=== PATIENT | female | born 1965 | race African-American/Black ===

== ENCOUNTER 2018-06-01 09:33 | Emergency (ER) | payer OTHER ==
[~2018-06-01] VITALS: Ht 175.3 cm; Wt 73.0 kg
[~2018-06-01 09:33] MED LIST: ASPIRIN325 PO; DICLOFENAC SODI75 MG PO; FLEXERIL PO; HYDROCODONE-AP1 EAC6 PO; IBUPROFEN 800800 MG PO; LIORESAL 10 MG10 MG PO; MEDROLDOSEPACK PO; MOBIC7.5 MG PO; NAPROSYN500 MG PO; NOHOMEMEDICATIONS; NORVASC10 MG PO; NORVASC5 MG PO; TRAMADOL 50 MG50 MG PO; VICODIN 5-5001 EACH PO; VITAMIN D3400 UNIT PO
[2018-06-01] MEDS ORDERED: ACYCLOVIR 400400 MG PO (09:40)
[2018-06-01 10:44] LABS: ABSOLUTE NEUTROPHILS 4.1 thou/uL (1.4-8.2); BASOPHILS 0.6 % (0.0-2.0); EOSINOPHILS 3.5 % (0.0-3.0); HEMATOCRIT 38.3 % (37.0-47.0); HEMOGLOBIN 13.1 gm/dL (12.0-15.0); LYMPHOCYTES 29.9 % (24.0-44.0); MCH 29.9 pg (26.0-34.0); MCHC 34.2 g/dL (28.0-37.0); MCV 87.3 fL (80.0-100.0); MONOCYTES 7.3 % (1.0-8.0); PLATELET COUNT 243 thou/uL (150-400); POLYS 58.7 % (36.0-66.0); RBC 4.38 mil/uL (4.20-5.00); RDW 14.1 % (10.5-14.5)
[2018-06-01 10:46] LABS: URINE BILIRUBIN NEGATIVE (Negative); URINE BLOOD NEGATIVE (Negative); URINE CLARITY CLEAR; URINE COLOR YELLOW; URINE GLUCOSE-RANDOM* NEGATIVE (Negative); URINE KETONES NEGATIVE (Negative); URINE LEUKOCYTES-REFLEX NEGATIVE (Negative); URINE NITRITE-REFLEX NEGATIVE (Negative); URINE PROTEIN (DIPSTICK) NEGATIVE (Negative); URINE SPECIFIC GRAVITY <= 1.005 (1.005-1.035); URINE UROBILINOGEN 0.2 E.U./dl (0.2-1.0)
[2018-06-01 10:57] LABS: CALCIUM 9.6 mg/dL (8.5-10.1); CREATININE 0.9 mg/dL (0.6-1.0); POTASSIUM 3.6 mmol/L (3.5-5.1)
[2018-06-01 11:03] LABS: ALBUMIN 3.8 g/dL (3.4-5.0); TOTAL BILIRUBIN 0.2 mg/dL (<0.1-1.0); TOTAL PROTEIN 7.5 g/dL (6.4-8.2)
[2018-06-01] MEDS ORDERED: ANUSOL-HC25 MG RECTAL (11:57)
[2018-06-01] MEDS ORDERED: PHENERGAN 25 MG25 M1 PO (11:57)
[2018-06-01] MEDS ORDERED: PEPCID20 MG PO (11:57)
[2018-06-01 12:41] VITALS: BP 140/81
== END 2018-06-01 12:42 | disposition home or self-care (01) ==
LOC: ER 09:33
PROVIDERS: Physician Assistant
DX: K64.4 Residual hemorrhoidal skin tags (principal); R10.10 Upper abdominal pain, unspecified; R11.2 Nausea with vomiting, unspecified; I10 Essential (primary) hypertension; Z88.0 Allergy status to penicillin; Z88.1 Allergy status to other antibiotic agents

== ENCOUNTER 2018-09-19 16:19 | Emergency (ER) | payer OTHER ==
[~2018-09-19] VITALS: Ht 175.3 cm; Wt 68.0 kg
[~2018-09-19 16:19] MED LIST changes: +ACYCLOVIR 400400 MG PO; +ANUSOL-HC25 MG RECTAL; +PEPCID20 MG PO; +PHENERGAN 25 MG25 M1 PO
[2018-09-19 16:22] VITALS: BP 115/82
[2018-09-19] MEDS ORDERED: NAPROSYN500 MG PO (16:46)
[2018-09-19] MEDS ORDERED: NORFLEX100 MG PO (16:46)
[2018-09-19] MEDS ORDERED: TRAMADOL 50 MG50 MG PO (16:46)
[2018-09-19] MEDS ORDERED: ALDACTONE100 MG PO (17:09)
[2018-09-19] MEDS ORDERED: SPIRONOLACTONE100 M1 PO (17:10)
== END 2018-09-19 17:12 | disposition home or self-care (01) ==
LOC: ER 16:19
DX: S39.012A Strain of muscle, fascia and tendon of lower back, initial encounter (principal); M43.6 Torticollis; I10 Essential (primary) hypertension; Z88.0 Allergy status to penicillin; Z98.890 Other specified postprocedural states; V89.2XXA Person injured in unspecified motor-vehicle accident, traffic, initial encounter; Y93.89 Activity, other specified; Y92.481 Parking lot as the place of occurrence of the external cause; Y99.8 Other external cause status

== ENCOUNTER 2019-04-10 14:20 | Emergency (ER) | payer OTHER ==
[~2019-04-10] VITALS: Ht 175.3 cm; Wt 78.9 kg
[~2019-04-10 14:20] MED LIST changes: +ALDACTONE100 MG PO; +NORFLEX100 MG PO; +SPIRONOLACTONE100 M1 PO
[2019-04-10] MEDS ORDERED: AMLODIPINE-BEN1 EACH PO (14:28)
[2019-04-10] MEDS ORDERED: ACYCLOVIR 400400 MG PO (14:28)
[2019-04-10] MEDS ORDERED: MOBIC15 MG PO (16:23)
[2019-04-10] MEDS ORDERED: CYCLOBENZAPRINE5 MG PO (16:23)
[2019-04-10 16:34] VITALS: BP 125/79
== END 2019-04-10 16:34 | disposition home or self-care (01) ==
LOC: ER 14:20
DX: M54.2 Cervicalgia (principal); M54.6 Pain in thoracic spine; M54.5 Low back pain; I10 Essential (primary) hypertension; Z98.890 Other specified postprocedural states; Z88.0 Allergy status to penicillin; V89.2XXA Person injured in unspecified motor-vehicle accident, traffic, initial encounter; Y93.89 Activity, other specified; Y92.89 Other specified places as the place of occurrence of the external cause; Y99.8 Other external cause status